=== PATIENT | female | born 1940 | race Caucasian/White ===

== ENCOUNTER 2021-06-02 07:31 | Inpatient (IN) | payer MEDICARE, BC ==
[2021-05-28 12:55] LABS: BASOPHILS # (AUTO) 0.1 X10'3 (0-0.2); BASOPHILS % (AUTO) 0.7 % (0-1); EOSINOPHILS # (AUTO) 0.1 X10'3 (0-0.9); EOSINOPHILS % (AUTO) 1.4 % (0-6); LYMPHOCYTES # (AUTO) 2.8 X10'3 (1.1-4.8); LYMPHOCYTES % (AUTO) 35.7 % (21-51); MEAN CORPUSCULAR HEMOGLOBIN 30.2 PG (27.0-31.0); MEAN CORPUSCULAR HGB CONC 33.1 g/dL (33.0-36.5); MEAN CORPUSCULAR VOLUME 91.2 FL (78-98); MEAN PLATELET VOLUME 7.4 FL (7.4-10.4); MONOCYTES # (AUTO) 0.5 X10'3 (0-0.9); MONOCYTES % (AUTO) 6.8 % (2-12); NEUTROPHILS # (AUTO) 4.3 X10'3 (1.8-7.7); NEUTROPHILS % (AUTO) 55.4 % (42-75); PRE OP HEMATOCRIT 41.9 % (35.0-45.0); PRE OP HEMOGLOBIN 13.9 g/dL (12.0-16.0); PRE OP PLATELET COUNT 332 X10'3 (140-440); RED BLOOD COUNT 4.59 X10'6 (4.20-5.60); RED CELL DISTRIBUTION WIDTH 13.9 % (11.5-14.5)
[2021-05-28 13:27] LABS: ALBUMIN 3.7 G/DL (3.4-5.0); ALBUMIN/GLOBULIN RATIO 0.9 (1.1-1.5); BLOOD UREA NITROGEN 22 MG/DL (7-18); CALCIUM 8.7 MG/DL (8.5-10.1); CHLORIDE 103 MMOL/L (99-107); CREATININE 1.05 MG/DL (0.40-0.90); PRE OP ALT 23 U/L (30-65); PRE OP ANION GAP 8 (8-16); PRE OP AST 25 U/L (10-37); PRE OP BILIRUB, TOTAL 0.4 MG/DL (0.0-1.0); PRE OP GLUCOSE 97 MG/DL (70-104); PRE OP POTASSIUM 4.4 MMOL/L (3.4-5.1); PRE OP SODIUM 142 MMOL/L (135-145); TOTAL CARBON DIOXIDE 30.8 MMOL/L (24-32); TOTAL PROTEIN 7.7 G/DL (6.4-8.2); eGFR 51 ML/MIN
[2021-05-28 13:45] LABS: ALKALINE PHOSPHATASE 72 IU/L (46-116)
[~2021-06-02] VITALS: Ht 152.4 cm; Wt 66.6 kg
[2021-06-02] VITALS (11 sets, daily range): BP systolic 127–173; BP diastolic 69–100
[~2021-06-02 07:31] MED LIST: ACET-1059 PO; ASCO500C17 PO; ASPI81TA52 PO; ATOR40TA71 PO; CALC-97 PO; GABA300C PO; LACT1CAP65 PO; MAGNESIUM; POTASSIUM; PSYL0.5244 PO; TEMA30CA PO; cefazolin/dext.iso 2gm/50ml IV ONE; famotidine 20mg tablet PO ONE; ringers solution, lacted 1,000 ML IV SCH; tranexamic acid 650mg tablet PO ONE
[2021-06-02] MEDS ORDERED: VANCOMYCIN INJ 1000 MG in NORMAL SALINE 200ml IV.SOLN IV ONE (11:00)
[2021-06-02] MEDS ORDERED: ROPIVAcaine 0.5% (5mg/ml) 30ml vial ONE (12:07)
[2021-06-02] MEDS ORDERED: propofol inj 20 ML IV ONE (12:15)
[2021-06-02] MEDS ORDERED: FENTANYL CITRATE/PF 50 MCG/1 ML VIAL ONE (12:15)
[2021-06-02] MEDS ORDERED: MIDAZolam 1 MG/ML 5ML VIAL ONE (12:15)
[2021-06-02] MEDS ORDERED: ringers solution, lacted 1,000 ML IV SCH (13:35)
[2021-06-02] MEDS ORDERED: ROPIVAcaine 0.2% (10 MG/5 ML) BOLUS INJECTION INTERSCALE PRN (13:35)
[2021-06-02] MEDS ORDERED: ROPIVAcaine 0.2%/PF PUMP/bolus 545 ML INTERSCALE SCH (13:35)
[2021-06-02] MEDS ORDERED: morphine 4 MG/ML inj SYRINge IV PRN (13:35)
[2021-06-02] MEDS ORDERED: ondansetron/PF 4mg/2ml inj IV PRN ×2 (13:35→14:25)
[2021-06-02] MEDS ORDERED: meperidine/PF 25mg/ml syringe IV PRN ×3 (13:35)
[2021-06-02] MEDS ORDERED: proCHLORperazine 10 MG/2 ml inj IV PRN (13:35)
[2021-06-02] MEDS ORDERED: morphine 2 MG/ML inj. syringe IV PRN (13:35)
[2021-06-02] MEDS ORDERED: dexamethasone sod phosphate 4mg/ml inj. ONE (14:03)
[2021-06-02] MEDS ORDERED: ondansetron/PF 4mg/2ml inj ONE (14:04)
[2021-06-02] MEDS ORDERED: acetaminophen 325mg tablet PO PRN (14:25)
[2021-06-02] MEDS ORDERED: HYDROmorphone inj. 0.5 MG/0.5 ML DISP.SYRIN IV PRN (14:25)
[2021-06-02] MEDS ORDERED: bisacodyl 10mg suppository rectal RC PRN (14:25)
[2021-06-02] MEDS ORDERED: ACETAMINOPHEN WITH CODEINE PO PRN (14:25)
[2021-06-02] MEDS ORDERED: magnesium hydroxide 30ml (MOM) UD suspension PO PRN (14:25)
[2021-06-02] MEDS: potassium cl 20mEq in 1/2 NS 1,000 ML IV SCH ×2 (14:25→22:25)
[2021-06-02] MEDS ORDERED: diphenhydrAMINE 25mg capsule PO PRN ×2 (14:25)
--- NOTE | 2021-06-02 15:38 | NUR ---
Report called to receiving nurse. Transferred via BED Belongings . Special Issues communicated to receiving nurse.AWAKE AND ORIENTED. VITALS STABLE. DRESSING DI. ANDRE PAIN. TO SURGICAL RM 355A AT THIS TIME.
[2021-06-02] MEDS: ceFAZolin/D5W- 1GM premix 50 ML IV SCH (16:25)
--- NOTE | 2021-06-02 17:00 | NUR ---
Patient iv right hand, Patient has clear lung sounds s1s2 heart sound patient has had a bm 06/01. Patient has sensation and movement in right hand. Good pulses at this time. Patient set up on post op vital. all stomach sound normal. patient voiding in bsc. wrap sling and dressing to left shoulder. Call light in reach.
[2021-06-02] MEDS: acetaminophen 325mg tablet PO SCH (18:35)
--- NOTE | 2021-06-02 18:37 | NUR ---
Problems reprioritized. Patient report given, questions answered & plan of care reviewed with Rene JEAN BAPTISTE.
[2021-06-02] MEDS ORDERED: VANCOMYCIN 1GM/200ML IVPB 200 ML IV SCH (20:00)
[2021-06-02] MEDS ORDERED: sennosides 8.6mg tablet PO SCH (21:00)
[2021-06-02] MEDS ORDERED: atorvastatin 20mg tablet PO SCH (21:00)
[2021-06-02] MEDS: temazepam 15mg capsule PO PRN (23:42)
[2021-06-03] VITALS: BP 134/61
[2021-06-03] MEDS: ceFAZolin/D5W- 1GM premix 50 ML IV SCH
[2021-06-03] MEDS: gabapentin 300mg capsule PO PRN ×2 (00:13→08:01)
[2021-06-03] MEDS: HYDROcodone/acetaminophen 10/325mg tab PO PRN ×2 (01:15→05:07)
[2021-06-03] MEDS: temazepam 15mg capsule PO PRN (01:16)
[2021-06-03] MEDS: acetaminophen 325mg tablet PO SCH ×3 (01:52→14:39)
[2021-06-03] MEDS: potassium cl 20mEq in 1/2 NS 1,000 ML IV SCH ×2 (01:52→08:13)
--- NOTE | 2021-06-03 06:22 | NUR ---
Problems reprioritized. Patient report given, questions answered & plan of care reviewed with JARRETT. Addendum: 06/03/21 at 0623 by Kamron Sow RN Amended: Links added.
--- NOTE | 2021-06-03 06:28 | NUR ---
Problems reprioritized. Patient report given, questions answered & plan of care reviewed with BERNICE. Addendum: 06/03/21 at 0628 by Kamron Sow RN Amended: Links added.
[2021-06-03 06:54] LABS: BASOPHILS % (AUTO) 0.2 % (0-1); EOSINOPHILS % (AUTO) 0 % (0-6); HEMATOCRIT 34.5 % (35.0-45.0); HEMOGLOBIN 11.5 g/dl (12.0-16.0); LYMPHOCYTES # (AUTO) 1.6 X10'3 (1.1-4.8); LYMPHOCYTES % (AUTO) 13.3 % (21-51); MEAN CORPUSCULAR HEMOGLOBIN 30.4 PG (27.0-31.0); MEAN CORPUSCULAR HGB CONC 33.3 g/dL (33.0-36.5); MEAN CORPUSCULAR VOLUME 91.4 FL (78-98); MEAN PLATELET VOLUME 8.1 FL (7.4-10.4); MONOCYTES # (AUTO) 0.8 X10'3 (0-0.9); MONOCYTES % (AUTO) 6.6 % (2-12); NEUTROPHILS # (AUTO) 9.5 X10'3 (1.8-7.7); NEUTROPHILS % (AUTO) 79.9 % (42-75); PLATELET COUNT 253 X10'3 (140-440); RED BLOOD COUNT 3.77 X10'6 (4.20-5.60); RED CELL DISTRIBUTION WIDTH 13.9 % (11.5-14.5); WHITE BLOOD COUNT 11.9 X10'3 (4.5-11.0)
[2021-06-03 07:00] VITALS: BP 115/55
[2021-06-03 07:10] LABS: ANION GAP 13 (8-16); CHLORIDE 108 MMOL/L (99-107); POTASSIUM 4.9 MMOL/L (3.5-5.1); SODIUM 143 MMOL/L (135-145); TOTAL CARBON DIOXIDE 21.9 MMOL/L (24-32)
[2021-06-03] MEDS ORDERED: ascorbic acid 500mg tablet PO SCH (08:00)
[2021-06-03] MEDS ORDERED: calcium carbonate/vitamin D3 tablet PO SCH (08:00)
[2021-06-03] MEDS ORDERED: psyllium seed 3.4 gm packet PO SCH (08:00)
[2021-06-03] MEDS ORDERED: lactobacillus rhamnosus 10,000 MMU CELLS/CAPSULE PO SCH (08:00)
[2021-06-03] MEDS: oxyCODONE IR 5mg (immed. release) tablet PO PRN ×2 (08:02→12:28)
[2021-06-03] MEDS ORDERED: aspirin 325mg tablet PO SCH (08:30)
[2021-06-03 11:00] VITALS: BP 156/63
--- NOTE | 2021-06-03 12:55 | NUR ---
Joint surgery consult: Pt admit s/p L shoulder arthroplasty per EMR. exercise science internship provided pt w/ written and verbal high protein diet education and RD contact information. Addendum: 06/03/21 at 1256 by Taryn Guerreroetic Intern RD Amended: Links added. Addendum: 06/03/21 at [address] I have reviewed and agree with note by Retread Technician. PAUL Farmer
--- NOTE | 2021-06-03 16:46 | NUR ---
PT DISCHARGED IN STABLE CONDITION. LEFT FACILITY IN PRIVATE VEHICLE WITH . IV DC CANULA INTACT. ALL BELONGINGS IN HAND. FOLLOW UP INSTRUCTIONS GIVEN, ALL QUESTIONS ANSWERED.
[2021-06-04] MEDS ORDERED: acetaminophen 325mg tablet PO PRN (14:25)
== END 2021-06-03 16:35 | disposition home or self-care (01) | DRG 483 ==
LOC: PAS IN 07:31 → SUR 3N 15:40
PROVIDERS: ADMIT Orthopaedic Surgery; ATTEND Orthopaedic Surgery
PROC: 0LS40ZZ Reposition Left Upper Arm Tendon, Open Approach (ICD-10-PCS; 2021-06-02)
PROC: 3E0T3BZ Introduction of Anesthetic Agent into Peripheral Nerves and Plexi, Percutaneous Approach (ICD-10-PCS; 2021-06-02)
PROC: 0RRK00Z Replacement of Left Shoulder Joint with Reverse Ball and Socket Synthetic Substitute, Open Approach (ICD-10-PCS; principal; 2021-06-02 12:13)
DX: M19.012 Primary osteoarthritis, left shoulder (principal); M65.812 Other synovitis and tenosynovitis, left shoulder; M75.102 Unspecified rotator cuff tear or rupture of left shoulder, not specified as traumatic; Z96.611 Presence of right artificial shoulder joint; G43.909 Migraine, unspecified, not intractable, without status migrainosus; Z20.822 Contact with and (suspected) exposure to COVID-19; Z90.49 Acquired absence of other specified parts of digestive tract; Z90.710 Acquired absence of both cervix and uterus; Z87.891 Personal history of nicotine dependence; Z82.49 Family history of ischemic heart disease and other diseases of the circulatory system; Z80.9 Family history of malignant neoplasm, unspecified
CPT/HCPCS: 36415; 80051; 80053; 82948; 85025; 87081; 93005; 97110; 97161; 97530; 97535; A4618; A7000; C1776; G0378; J0690; J1100; J2250; J2405; J2704; J2795; J3010; J3370; J3480; J3490; J7120; U0003; U0005